=== PATIENT | female | born 1955 | race Asian ===

== ENCOUNTER 2020-02-10 02:42 | Inpatient (IN) | payer OTHER, SELFPAY ==
[~2020-02-10] VITALS: Ht 157.5 cm; Wt 64.4 kg
[2020-02-10 02:42] VITALS: BP_SYST 136
--- NOTE | 2020-02-10 02:42 | NUR ---
Patient to ER bed 08 to gown for evaluation. Side rails up.
--- NOTE | 2020-02-10 02:50 | NUR ---
Patient presents to ED via ambulance from home for complaint of increasing nausea, vomiting, and generalized weakness since 0800 yesterday. Niece reports increasing of symptoms prompting ED visit. Per report patient was tested for Covid-19 on 02/04/20 and a positive result given on 02/05/20. 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 No acute respiratory distress noted.
--- NOTE | 2020-02-10 02:55 | NUR ---
ED MD Dave at bedside for medical evaluation.
--- NOTE | 2020-02-10 03:15 | NUR ---
Patient's O2 sat 96-97% RA, per MD Dave, patient placed on 2L NC. O2 sat 98%.
[2020-02-10] MEDS ORDERED: MELO15TA13 PO (03:29)
[2020-02-10] MEDS ORDERED: LOVA40TA75 PO (03:29)
[2020-02-10] MEDS ORDERED: MONT10TA25 PO (03:29)
--- NOTE | 2020-02-10 03:29 | NUR ---
# 20 gauge angiocath placed to LAC. Use of asceptic technique. Opsite placed over site. Blood return noted. Blood for lab drawn from site. Flushed with 10 cc of normal saline. No evidence of infiltration noted. Patient tolerated well.
[2020-02-10 03:49] LABS: BASOPHILS % (AUTO) 0.4 % (0.0-2.0); EOSINOPHILS % (AUTO) 0.3 % (0.0-4.0); HEMATOCRIT 43.5 % (36-48); HEMOGLOBIN 14.6 g/dL (12.0-16.0); LYMPHOCYTES # (AUTO) 1.8 K/uL (1.0-5.5); LYMPHOCYTES % (AUTO) 18.9 % (20.5-51.5); MEAN CORPUSCULAR HEMOGLOBIN 30 pg (27-31); MEAN CORPUSCULAR HGB CONC 34 % (32-36); MEAN CORPUSCULAR VOLUME 90 fL (79.0-98.0); MONOCYTES # (AUTO) 0.7 K/uL (0.0-1.0); MONOCYTES % (AUTO) 7.2 % (1.7-9.3); NEUTROPHILS # (AUTO) 6.8 K/uL (1.8-7.7); NEUTROPHILS % (AUTO) 73.2 % (40.0-70.0); PLATELET COUNT (AUTO) 181 K/uL (130-430); RED BLOOD CELL COUNT(AUTO) 4.81 MIL/uL (4.2-6.2); RED CELL DISTRIBUTION WIDTH 13.2 % (9.0-15.0); WHITE BLOOD COUNT (AUTO) 9.4 K/uL (4.8-10.8)
--- NOTE | 2020-02-10 04:20 | NUR ---
# 18 gauge angiocath placed to RAC. Use of asceptic technique. Opsite placed over site. Blood return noted. Blood for lab drawn from site. Flushed with 10 cc of normal saline. No evidence of infiltration noted. Patient tolerated well.
[2020-02-10] MEDS ORDERED: CEFEPIME 2 GM in D5W 100 ML IV ONE (04:30)
[2020-02-10] MEDS ORDERED: AZITHROMYCIN 500 MG in NS 250 ML IV ONE (04:30)
[2020-02-10 04:37] LABS: CALCIUM 8.2 mg/dL (8.4-11.0); POTASSIUM 3.1 mmol/L (3.5-5.1)
[2020-02-10 04:41] LABS: PROTHROMBIN TIME 9.7 SECS (9.5-12.5)
[2020-02-10 04:42] LABS: ALBUMIN 3.7 g/dL (3.4-4.8); TOTAL BILIRUBIN 0.4 mg/dL (0.0-1.0)
[2020-02-10] MEDS ORDERED: AZITHROMYCIN 500 MG/VIAL (ZITHROMAX) IV ONE (04:54)
[2020-02-10] MEDS ORDERED: CEFEPIME 1 GM/VIAL (MAXIPIME) ONE (04:55)
[2020-02-10] MEDS ORDERED: NS 500 ML IV ONE (05:30)
[2020-02-10] MEDS ORDERED: POTASSIUM CHLORIDE 20 MEQ TAB.PRT.SR PO ONE (05:45)
--- NOTE | 2020-02-10 06:00 | NUR ---
End of life care decisions discussed with patient by Dr. Dave. Opportunity for questions and concerns addressed. Patient's code status is FULL CODE, paperwork completed and placed in chart.
[2020-02-10] MEDS ORDERED: HYDR25TA4 PO (06:05)
--- NOTE | 2020-02-10 06:05 | NUR ---
Medication reconciliation completed with information provided by patient. Any prior medication reconciliation on file was reviewed and corrected.
--- NOTE | 2020-02-10 06:43 | NUR ---
Patient will be admitted to [facility]. Admitted to Telemetry unit. Awaiting bed assignment. Complete and up to date summary report printed. SBAR report to be given at bedside with opportunity for questions.
--- NOTE | 2020-02-10 06:52 | NUR ---
Continues to await for bed assignment.
--- NOTE | 2020-02-10 07:05 | NUR ---
Patient updated with plan of care. Patient's kate Nielson .
--- NOTE | 2020-02-10 07:24 | NUR ---
Report given to JEANNA Han. All care endorsed.
--- NOTE | 2020-02-10 07:43 | NUR ---
REASSESSMENT; PATIENT REMAINS SEDATE; STATES BACK PAIN REMAINS; DISPOSTION TO TELE PENDING FOR 0800; OTHERWISE UNCHANGED
--- NOTE | 2020-02-10 07:50 | NUR ---
PATIENT TRANSFERRED TO TELE WITH ACLS, UNCHANGED; REPORT AT BEDSIDE
--- NOTE | 2020-02-10 08:12 | NUR ---
CONSULTATION PAGED REASON FOR CONSULTATION:POSSIBLE COVID-19 WAS CONSULT CALLED?Y PERSON WHO WAS NOTIFIED:JENNY CONSULTING PHYSICIAN:IFEOMA BLAND READING AIDE SPECIALTY:INFECTIOUS DISEASE READING AIDE PHONE NUMBER:[phone] REQUESTING PHYSICIAN:VERNON VELASQUEZ
[2020-02-10 08:33] VITALS: BP_SYST 139
--- NOTE | 2020-02-10 08:45 | NUR ---
Opening Notes Patient is awake, alert and oriented x4. Patient remains on contact isolation. Patient is ambulatory, gait steady. Patient c/o back pain, 7/10, requesting pain medication. Patient c/o SOB, placed on 2 liters of continuous oxygen @ 2 LPM. Patient was noted with a IV on right AC, 18 gauge and IV on left AC, 20 gauge, flushing well. No infiltration or phlebitis noted. Patient is noted with a nonproductive cough. Safety and fall measures in place. Call light within reach. Bed in lowest position, locked. Will continue to monitor.
--- NOTE | 2020-02-10 10:21 | NUR ---
PAGED PAGED VERNON VELASQUEZ AT [phone] SPOKE WITH OLVIN.
[2020-02-10] MEDS ORDERED: ACETAMINOPHEN 325 MG TABLET ONE (11:21)
[2020-02-10] MEDS ORDERED: ENOXAPARIN SODIUM 30 MG/0.3 ML SYRINGE SUBCUT ONE (11:45)
[2020-02-10] MEDS ORDERED: HYDROXYCHLOROQUINE SULFATE 200 MG TABLET PO ONE (11:45)
[2020-02-10] MEDS ORDERED: CHOLECALCIFEROL (VITAMIN D3) 2,000 UNIT TABLET PO ONE (12:00)
[2020-02-10] MEDS ORDERED: ASCORBIC ACID 500 MG TABLET PO ONE (12:00)
--- NOTE | 2020-02-10 12:00 | NUR ---
Notes/Refused Plaquenil Patient is awake, alert and oriented x4. Patient refused Plaquenil dose. Per patient, "I took this at the other hospital I was at and it didnt work for me." No resp distress at this time. Patient remains on continuous oxygen @ 2LPM. Patient reports relief from pain medication earlier. Safety and fall precautions in place. Call light within reach. Will continue to monitor.
[2020-02-10] MEDS: LR 1,000 ML IV SCH (12:30)
[2020-02-10] MEDS ORDERED: FAMOTIDINE 20 MG TABLET PO ONE (12:30)
[2020-02-10] MEDS: ACETAMINOPHEN 325 MG TABLET PO PRN ×2 (13:55→18:43)
--- NOTE | 2020-02-10 14:48 | NUR ---
DC PLANNING Called & spoke with pt on ph room, Isolation for PUI. States her cell phone is [phone]. Lives alone in 1 story house, independent. Has nieces or nephew that live close that can assist if needed. Also has dtr in [place] that can assist if needed. Is agreeable with transfer to contracted hospital if needed, with preference for [facility].
--- NOTE | 2020-02-10 16:24 | NUR ---
Notes Patient is laying in bed, resting. No resp distress at this time. Patient denies any pain. Patient has no needs at this time. Call light within reach. Bed in lowest position. will continue to monitor.
[2020-02-10 18:00] VITALS: BP_SYST 155
[2020-02-10] MEDS: MONTELUKAST 10 MG TABLET PO SCH (18:43)
--- NOTE | 2020-02-10 18:47 | NUR ---
Closing Notes Patient is awake, alert and oriented x3. No resp distress noted. Patient denies any pain at this time. Call light within reach. Safety and fall precautions implemented. Bed in lowest position, locked. Will endorse to next nurse.
[2020-02-10 20:00] VITALS: BP_SYST 147
--- NOTE | 2020-02-10 20:24 | NUR ---
Dr. Pedroza Paged Dr. Pedroza and he was informed that patient is having nausea and vomiting. He gave medication order for Zofran 4mg IVP Q4H
[2020-02-10] MEDS ORDERED: ONDANSETRON HCL 4 MG/2 ML VIAL IVP PRN (20:30)
[2020-02-10] MEDS: MELOXICAM 7.5 MG TABLET PO SCH (21:00)
[2020-02-10] MEDS: ENOXAPARIN SODIUM 40 MG/0.4 ML SYRINGE SUBCUT SCH (21:00)
[2020-02-10] MEDS: HYDROXYCHLOROQUINE SULFATE 200 MG TABLET PO SCH (21:00)
[2020-02-10] MEDS ORDERED: MELOXICAM 7.5 MG TABLET PO SCH (21:00)
[2020-02-10] MEDS: DOXYCYCLINE HYCLATE 100 MG CAPSULE PO SCH (21:47)
[2020-02-10] MEDS: POTASSIUM CHLORIDE 20 MEQ TAB.PRT.SR PO SCH (21:47)
[2020-02-10] MEDS: FAMOTIDINE 20 MG TABLET PO SCH (21:47)
[2020-02-10] MEDS: guaiFENesin/DEXTROMETHORPHAN 10 ML UDC PO PRN (21:48)
--- NOTE | 2020-02-10 23:19 | NUR ---
IV alarm, v/s Patient called IV is alarming; it was assessed and cleared the air bubble. Vital signs taken and stable. Presently patient denies pain, nausea is controlled and is having occasional coughing. She said she doesn't want another dose of Robitussin and states that she thinks it makes her cough, it didn't help. She wants to sleep and has no further needs. Will continue to monitor, call light w/in reach.
[2020-02-10 23:20] VITALS: BP_SYST 137
[2020-02-11] MEDS: ACETAMINOPHEN 325 MG TABLET PO PRN ×3 (06:17→18:55)
[2020-02-11] MEDS: LR 1,000 ML IV SCH ×2 (06:17→21:53)
[2020-02-11] MEDS: POTASSIUM CHLORIDE 20 MEQ TAB.PRT.SR PO SCH ×2 (07:47→21:52)
[2020-02-11] MEDS: HYDROXYCHLOROQUINE SULFATE 200 MG TABLET PO SCH ×2 (07:47→21:00)
[2020-02-11] MEDS: FAMOTIDINE 20 MG TABLET PO SCH ×2 (07:48→21:53)
[2020-02-11] MEDS: DOXYCYCLINE HYCLATE 100 MG CAPSULE PO SCH ×2 (07:48→21:53)
[2020-02-11] MEDS: MELOXICAM 7.5 MG TABLET PO SCH ×2 (07:53→21:53)
[2020-02-11 08:00] VITALS: BP_SYST 152
--- NOTE | 2020-02-11 08:00 | NUR ---
Opening Notes Patient is awake, alert and oriented x4. Patient is ambulatory, steady gait. Patient is in good spirits this morning. Per patient, "I am feeling alot better today." No resp distress noted. Patient has therapeutic oxygen levels at room air but has nasal cannula available by bedside. No resp distress noted. Breathing is even and unlabored. Patient denies any pain or nausea at this time. 2 IV sites noted: on right AC, 18 gauge & on left AC, 20 gauge, flushing well. LR @ 60 cc/hr. Skin intact. Safety and fall precautions in place. Call light within reach. Bed in lowest position, locked. Will continue to monitor.
--- NOTE | 2020-02-11 08:30 | NUR ---
Refused Plaquenil Patient refused Plaquenil. Patient is okay with taking Doxycycline. Will continue to monitor.
[2020-02-11] MEDS ORDERED: CHOLECALCIFEROL (VITAMIN D3) 2,000 UNIT TABLET PO SCH (09:00)
[2020-02-11] MEDS ORDERED: ENOXAPARIN SODIUM 30 MG/0.3 ML SYRINGE SUBCUT SCH (09:00)
[2020-02-11] MEDS ORDERED: HYDROCHLOROTHIAZIDE 25 MG TABLET (HCTZ) PO SCH (09:00)
[2020-02-11] MEDS ORDERED: ATORVASTATIN 10 MG TABLET PO SCH (09:00)
[2020-02-11] MEDS ORDERED: ASCORBIC ACID 500 MG TABLET PO SCH (09:00)
--- NOTE | 2020-02-11 11:30 | NUR ---
Patient is being seen by Dr. Pedroza
[2020-02-11 11:55] LABS: BASOPHILS % (AUTO) 0.5 % (0.0-2.0); EOSINOPHILS % (AUTO) 0.1 % (0.0-4.0); HEMATOCRIT 39.2 % (36-48); HEMOGLOBIN 12.9 g/dL (12.0-16.0); LYMPHOCYTES # (AUTO) 1.3 K/uL (1.0-5.5); LYMPHOCYTES % (AUTO) 21.8 % (20.5-51.5); MEAN CORPUSCULAR HEMOGLOBIN 30 pg (27-31); MEAN CORPUSCULAR HGB CONC 33 % (32-36); MEAN CORPUSCULAR VOLUME 91 fL (79.0-98.0); MONOCYTES # (AUTO) 0.6 K/uL (0.0-1.0); MONOCYTES % (AUTO) 9.8 % (1.7-9.3); NEUTROPHILS # (AUTO) 3.9 K/uL (1.8-7.7); NEUTROPHILS % (AUTO) 67.8 % (40.0-70.0); PLATELET COUNT (AUTO) 161 K/uL (130-430); RED BLOOD CELL COUNT(AUTO) 4.31 MIL/uL (4.2-6.2); RED CELL DISTRIBUTION WIDTH 13.7 % (9.0-15.0); WHITE BLOOD COUNT (AUTO) 5.8 K/uL (4.8-10.8)
[2020-02-11 12:00] VITALS: BP_SYST 118
[2020-02-11 12:07] LABS: CALCIUM 8.2 mg/dL (8.4-11.0); CREATININE 0.75 mg/dL (0.55-1.30); POTASSIUM 3.7 mmol/L (3.5-5.1)
[2020-02-11 12:12] LABS: ALBUMIN 3.1 g/dL (3.4-4.8); TOTAL BILIRUBIN 0.3 mg/dL (0.0-1.0)
[2020-02-11] MEDS ORDERED: IVERMECTIN 3 MG TABLET PO ONE (12:30)
--- NOTE | 2020-02-11 12:30 | NUR ---
Notes Patient is awake, alert and oriented x4, laying in bed. No resp distress at this time. Patient c/o general body pain, 03/15. Tylenol 650 mg given as ordered by MD, tolerated well. Patient also c/o cough. Noted with a productive cough. Patient was given cough medicine, tolerated well. Patient is having lunch at this time. Patient denies any nausea or vomiting at this time. Safety and fall precautions implemented. Call light within reach. Bed in lowest position, locked. Will continue to monitor.
--- NOTE | 2020-02-11 12:45 | NUR ---
Ivermectin 12 mg x ONE TIME ONLY Patient was given Ivermectin 23 mg x 1 time only as ordered by Dr. Sunshine, tolerated well. No resp distress at this time. Breathing is even and unlabored. Will continue to monitor. Addendum: 02/11/20 at 1607 by Janelle Epps RN 12 mg x 1 time only
[2020-02-11] MEDS: guaiFENesin/DEXTROMETHORPHAN 10 ML UDC PO PRN (12:56)
--- NOTE | 2020-02-11 13:37 | NUR ---
DC Planning: updated [facility] dept # [phone]:pending covid -19n result and today ID progress note was fax to f#[phone]. Shekhar Michel: Ric is the assigned counter caser, she will be calling me for further detail. Addendum: 02/11/20 at 1652 by Brennan Montes RN >> Called back from Roman Navarrete # [phone]: updated clinical and refaxed stability form to [phone] by BAKARI Leyva dept. He will consult with medcical team and will call nursing station if decides to transfer to net work.
[2020-02-11 16:00] VITALS: BP_SYST 144
--- NOTE | 2020-02-11 16:04 | NUR ---
Notes Patient is awake, alert and oriented x4. No resp distress noted. Breathing is even and unlabored at this time. Patient denies any pain. Safety and fall precautions are in place. Call light within reach. Bed in lowest position, locked. Will continue to monitor.
[2020-02-11] MEDS: MONTELUKAST 10 MG TABLET PO SCH (16:48)
--- NOTE | 2020-02-11 17:46 | NUR ---
PAGED PAGED VERNON VELASQUEZ AT [phone] SPOKE WITH
--- NOTE | 2020-02-11 18:49 | NUR ---
Closing Notes Patient is awake, alert and oriented x4. No resp distress noted. Breathing is even and unlabored. Patient c/o general body pain, 7/. Patient was given PRN pain medication as ordered by MD, tolerated well. Patient c/o she was "cold." Nurse checked her blood sugar, 99 mg/dL. Patient aware and agreed. Nurse gave patient another blanket. Safety and fall precautions in place. Call light within reach. Bed in lowest position, locked. Will endorse to next nurse.
--- NOTE | 2020-02-11 19:15 | NUR ---
OPENING NOTE REPORT RECEIVED FROM DAYSKSFT NURSE. PATIENT RECEIVED LYING IN BED, AWAKE, NO S/S OF ACUTE DISTRESS NOTED. PATIENT DENIES PAIN. NO SOB. HOB RAISED. IVF INFUSING WELL, IV SITE IS PATENT, PATIENT STATES THAT THE SITE HURTS, REQUESTING TO HAVE NEW IV INSERTED, TO BE DONE BY RN LATER. CALL LIGHT WITH PATIENT. WILL CONTINUE TO MONITOR.
[2020-02-11 20:00] VITALS: BP_SYST 132
--- NOTE | 2020-02-11 20:27 | NUR ---
[facility] CALLED [facility] AND SPOKE WITH ELVIRA AND SHE SAID THEY ARE STILL WAITING ON A BED AND WILL GET BACK TO US
--- NOTE | 2020-02-11 21:00 | NUR ---
SCHEDULED MEDS/REFUSED PLAQUENIL/NEW IV SCHEDULED MEDICATIONS ADMINISTERED AT THIS TIME, PATIENT TOLERATED WELL. PATIENT REFUSED PLAQUENIL, EDUCATED ON ITS PURPOSE AND BENEFITS, PATIENT STILL REFUSED. NEW IV INSERTED AT LEFT FOREARM 22 GAUGE, IVF INFUSING AT THIS TIME, NO SIGNS OF INFILTRATION. IV SITES AT LEFT AC AND RIGHT AC REMOVED, CATHETERS FULLY INTACT, NO ACTIVE BLEEDING NOTED. ALL NEEDS MET AT THIS TIME. WILL CONTINUE TO MONITOR.
[2020-02-11] MEDS: ENOXAPARIN SODIUM 40 MG/0.4 ML SYRINGE SUBCUT SCH (21:53)
--- NOTE | 2020-02-11 22:52 | NUR ---
REPORT GIVEN TO GLIDDEN REPORT GIVEN TO JEANNA HARDY, #[phone]. PATIENT GOING TO TELE UNIT ROOM 2207 AT [facility] [place] ESTIMATED TACTICAL RESPONSE GROUP OFFICER TIME IS AT 2330.
[2020-02-11 22:55] VITALS: BP_SYST 132
--- NOTE | 2020-02-11 23:50 | NUR ---
GYMNASTICS INSTRUCTOR BY MEDIC 1 REPORT GIVEN TO EMTSUNI AT THIS TIME. vacuum drier operator HERE TO GYMNASTICS INSTRUCTOR PATIENT FOR TRANSFER TO [facility].
--- NOTE | 2020-02-12 00:10 | NUR ---
DISCHARGED PATIENT TAKEN FROM UNIT VIA GURNEY, ESCORTED BY MEDIC 1 business division chair. PATIENT SHOWS NO S/S OF ACUTE DISTRESS. BREATHING EVEN AND UNLABORED. VITAL SIGNS STABLE. ALL NEEDS MET THROUGHOUT SHIFT. FALL,SAFETY, AND ISOLATION PRECAUTIONS MET THROUGHOUT SHIFT. IV SITE ON LEFT FOREARM, 22 GAUGE, PATENT, NO SIGNS INFILTRATION OR INFECTION NOTED. REQUESTED BY RN FROM JENNIFER TO NOT REMOVE. HEART MONITOR REMOVED. ID BAND REMOVED. TEMPORARY ID BAND AND ALLERGY BAND ATTACHED.
== END 2020-02-12 00:10 | disposition short-term general hospital (02) | DRG 177 ==
LOC: SED 02:42 → STU 06:38 → EEVIPCON 06:38 → STU 07:10
PROVIDERS: ADMIT Internal Medicine; ATTEND Internal Medicine
DX: U07.1 COVID-19 (principal); J12.9 Viral pneumonia, unspecified; E87.2 Acidosis; I10 Essential (primary) hypertension; E78.5 Hyperlipidemia, unspecified; E87.6 Hypokalemia; M19.90 Unspecified osteoarthritis, unspecified site; R73.03 Prediabetes; R09.02 Hypoxemia; Z88.8 Allergy status to other drugs, medicaments and biological substances; Z79.899 Other long term (current) drug therapy
CPT/HCPCS: 36415; 36600; 71045; 80053; 82728; 82803-TC; 82962; 83036; 83605; 83615-TC; 83880; 84484; 85025; 85379; 85384-TC; 85610-TC; 85730-TC; 86140; 86710; 87040-TC; 93005; 96361; 96365; 96368; 99291; G0378; J0456; J0692; J1650; J2405; J7120; U0002